=== PATIENT | female | born 1990 | race Caucasian/White ===

== ENCOUNTER 2021-06-07 00:34 | Inpatient (IN) | payer OTHER ==
[~2021-06-07] VITALS: Ht 157.5 cm; Wt 80.1 kg
[2021-06-07 00:35] VITALS: BP 113/74
[2021-06-07 01:26] LABS: ABSOLUTE NEUTROPHILS 2.3 thou/uL (1.4-8.2); BASOPHILS 0.3 % (0.0-2.0); EOSINOPHILS 0.1 % (0.0-3.0); HEMATOCRIT 37.4 % (37.0-47.0); HEMOGLOBIN 12.4 gm/dL (12.0-15.0); LYMPHOCYTES 23.5 % (24.0-44.0); MCH 29.2 pg (26.0-34.0); MCHC 33.1 g/dL (28.0-37.0); MCV 88.1 fL (80.0-100.0); PLATELET COUNT 94 thou/uL (150-400); POLYS 70.1 % (36.0-66.0); RBC 4.25 mil/uL (4.20-5.00); RDW 13.4 % (10.5-14.5); WBC 3.2 thou/uL (4.0-11.0)
[2021-06-07 01:29] LABS: CALCIUM 7.9 mg/dL (8.5-10.1); CREATININE 0.7 mg/dL (0.6-1.0); POTASSIUM 4.1 mmol/L (3.5-5.1)
[2021-06-07 01:35] LABS: TOTAL BILIRUBIN 0.2 mg/dL (0.2-1.0)
[2021-06-07 02:35] LABS: BE(vivo) -3.1 mmol/L (-2 to +3); HCO3 20.5 mmol/L (22.0-26.0); PCO2 32.4 mmHg (35.0-45.0); PO2 95.9 mmHg (80.0-100.0); sO2 97.5 % (92.0-98.0)
--- NOTE | 2021-06-07 07:18 | EKG ---
[address] [place] [employer] [place] [address] ELECTROCARDIOGRAM REPORT Name: FREDIS JOINER Room #: 170-4 ADM IN M.R.#: [id number] Admission: 06/07/21 Attend Phys: Shaka Myers MD Discharge: Date of : [birth year] Report #: [id number] [facility] ED Test Date: 2021-06-07 Test Time: 01:42:54 Pat Name: FREDIS SEGURA Department: Room: 170 Gender: F Vice President Financial: SANCHEZ : 1990 Requested By: Zaire Quiñonez Order Number: [id number] MD: Rock Felipe Measurements Intervals [place] Rate: 115 P: 47 VA: 135 QRS: -8 QRSD: 97 T: 14 QT: 309 QTc: 428 Interpretive Statements Sinus tachycardia RSR' in V1 or V2, right VCD or RVH No previous ECG available for comparison Electronically Signed On 06-07-2021 7:17:58 MOBILITY ARCHITECT MANAGER by Rock Felipe [email or web address] <ELECTRONICALLY SIGNED> By: Rock Felipe MD, [facility] 06/07/21 0717 [id number] [id number] Rock Felipe MD, FACFlorinda /EPI
[2021-06-07 14:03] VITALS: BP 102/59
[2021-06-07 15:06] VITALS: BP 102/59
[2021-06-07 15:38] VITALS: BP 101/65
--- NOTE | 2021-06-07 15:47 | NUR ---
31 year old female presents to the ED on 06-07-21 with complaints of SOA, cough, fever and "chills" all of which began on 06-01-21. Also notes loss of taste and smell and notes she is unvaccinated and ID Now shows a positive result. Presently the patient is on 2L via NC. Per the assessments the patient is listed as A&O x4. Will have [facility] review with patient who is listed as patient pay. As Medical assessment continues CM will await therapy orders to be placed to assist for discharge planning which may include need for a safety net clinic.
[2021-06-07 18:57] LABS: URINE BILIRUBIN NEGATIVE (Negative); URINE BLOOD NEGATIVE (Negative); URINE CLARITY CLEAR; URINE COLOR YELLOW; URINE GLUCOSE-RANDOM* NEGATIVE (Negative); URINE KETONES NEGATIVE (Negative); URINE LEUKOCYTES-REFLEX NEGATIVE (Negative); URINE NITRITE-REFLEX NEGATIVE (Negative); URINE PROTEIN (DIPSTICK) NEGATIVE (Negative); URINE UROBILINOGEN 0.2 E.U./dl (0.2-1.0)
[2021-06-07 21:06] VITALS: BP 98/56
[2021-06-07 23:47] VITALS: BP 94/59
[2021-06-08 04:01] LABS: ABSOLUTE NEUTROPHILS 2.7 thou/uL (1.4-8.2); BASOPHILS 0.2 % (0.0-2.0); HEMATOCRIT 34.2 % (37.0-47.0); HEMOGLOBIN 11.4 gm/dL (12.0-15.0); LYMPHOCYTES 30.3 % (24.0-44.0); MCH 29.5 pg (26.0-34.0); MCHC 33.3 g/dL (28.0-37.0); MCV 88.7 fL (80.0-100.0); MONOCYTES 5.7 % (1.0-8.0); PLATELET COUNT 115 thou/uL (150-400); POLYS 63.8 % (36.0-66.0); RBC 3.85 mil/uL (4.20-5.00); RDW 13.4 % (10.5-14.5); WBC 4.3 thou/uL (4.0-11.0)
[2021-06-08 04:18] LABS: ALBUMIN 2.7 g/dL (3.4-5.0); ANION GAP 11 mmol/L (7-16); BUN 10 mg/dL (7-18); CALCIUM 7.4 mg/dL (8.5-10.1); CHLORIDE 103 mmol/L (98-107); CO2 24 mmol/L (21-32); CREATININE 0.5 mg/dL (0.6-1.0); DIRECT BILIRUBIN < 0.1 mg/dL (<0.1-0.2); GLUCOSE 137 mg/dL (74-106); POTASSIUM 3.8 mmol/L (3.5-5.1); SGOT 41 U/L (15-37); SGPT 56 U/L (30-65); SODIUM 138 mmol/L (136-145); TOTAL BILIRUBIN 0.2 mg/dL (0.2-1.0); TOTAL PROTEIN 5.8 g/dL (6.4-8.2)
[2021-06-08 05:16] VITALS: BP 108/60
--- NOTE | 2021-06-08 06:05 | NUR ---
Pt. on O2 at 3L/NC till this am. O2 sat has been in the upper 90's to 100% on 3L. Titrated O2 down to 2L/NC. Shortness of breath with exertion. Cont. on enhanced precaution , afebrile.
[2021-06-08 08:59] VITALS: BP 93/53
[2021-06-08 11:38] VITALS: BP 99/59
--- NOTE | 2021-06-08 16:09 | NUR ---
CARE ASSUMED THIS AM, PT ALERT AND ORIENTED X4, DENIES ANY CHEST PAIN, NAUSEA AND VOMITTING. COMPLAINS OF PAIN WITH COUGH. TYLENOL AND COUGH MEDICINE GIVEN. CURRENTLY ON 1L OF OXYGEN, SOB WITH EXERTION. PT IS PALESTINIAN SPEAKING, TRASNLATE SYSTEM USED THIS AM. UP AD JAY TO BATHROOM. DENIES ANY OTHER NEEDS. WILL CONTINUE TO MONITOR.
[2021-06-08 16:50] VITALS: BP 91/58
[2021-06-08 19:06] VITALS: BP 98/56
[2021-06-09 05:27] LABS: ABSOLUTE NEUTROPHILS 1.5 thou/uL (1.4-8.2); BASOPHILS 0.4 % (0.0-2.0); HEMATOCRIT 35.1 % (37.0-47.0); HEMOGLOBIN 11.5 gm/dL (12.0-15.0); MCH 29.7 pg (26.0-34.0); MCHC 32.6 g/dL (28.0-37.0); MONOCYTES 10.1 % (1.0-8.0); PLATELET COUNT 149 thou/uL (150-400); POLYS 45.5 % (36.0-66.0); RBC 3.86 mil/uL (4.20-5.00); RDW 13.5 % (10.5-14.5); WBC 3.3 thou/uL (4.0-11.0)
[2021-06-09 05:55] LABS: ALBUMIN 2.7 g/dL (3.4-5.0); ANION GAP 9 mmol/L (7-16); BUN 11 mg/dL (7-18); CALCIUM 7.7 mg/dL (8.5-10.1); CHLORIDE 104 mmol/L (98-107); CO2 26 mmol/L (21-32); CREATININE 0.6 mg/dL (0.6-1.0); DIRECT BILIRUBIN < 0.1 mg/dL (<0.1-0.2); GLUCOSE 109 mg/dL (74-106); PHOSPHORUS 3.4 mg/dL (2.5-4.9); SGOT 38 U/L (15-37); SGPT 49 U/L (30-65); SODIUM 139 mmol/L (136-145); TOTAL BILIRUBIN 0.2 mg/dL (0.2-1.0); TOTAL PROTEIN 6.4 g/dL (6.4-8.2)
--- NOTE | 2021-06-09 06:25 | NUR ---
Slept fair during the night. Woke up this am with episode of coughing spells. Cough medicine given this am and tylenol given last night. C/O nausea due to coughig spells. Zofran given with some relief. O2 at 1L/NC with O2 sat in the mid to upper 90's. Cont. on enhanced precaution , afebrile. Making some progress towards care plan goals.
[2021-06-09 07:41] VITALS: BP 92/52
[2021-06-09 08:08] LABS: HIV ANTIBODY Non Reactive (Non Reactive)
[2021-06-09 10:58] VITALS: BP 106/63
--- NOTE | 2021-06-09 12:21 | NUR ---
CM assessment completed with the pt via phone due to enhanced ISO covid+. The pt reports she lives with her spouse and 3 children. The youngest is 9mos old and is on medicaid. The pt is currently not working as she is staying at home with her children. She is unvaccinated and does not have health insurance in place. She is normally indep with gait and adl's. She is being seen by [facility] for [place] screening. She has had two doses of remdesivir and will get 2-3 more before dcing home. She is up ad carla to the bathroom and down to 1 liters of o2 currently. Torsten Chavez is her "spouse" but they are not legally . Support provided. Cm role introduced. Cm to voucher any dc scripts. Pt is aware of saftey net clinics for f/u care. Will follow.
[2021-06-09 15:29] VITALS: BP 98/58
--- NOTE | 2021-06-09 15:48 | NUR ---
CARE ASSUMED THIS AM, PT ALERT AND ORIENTED X4, NEPALESE SPEAKING. CURRENTLY ON 1L OF OXYGEN. CONTINUE TO HAVE COUGH, STATED STATED PAIN IS BETTER WITH COUGH. UP TO BATHROOM INDEPENDENTLY. ENHANCED PRECAUTION IN PLACE. DENIES ANY OTHER PAIN. CALL LIGHT AND TABLE WITHIN REACH. PT IS SLOWLY PROGRESSING TOWARDS CARE.
[2021-06-09 19:28] VITALS: BP 114/74
--- NOTE | 2021-06-09 22:28 | NUR ---
PROGRESS PT A/O X4. UP AD JAY GAIT STEADY. CALL LIGHT AND PERSONAL ITEMS IN REACH. VSS, LUNGS DIMINISHED ON 1 LITER O2 VIA NC. PT REPORTED COUGH HAS DECREASED, DENIES PAIN OR NEED FOR COUGH MEDICATION. VOIDING QS. NO NAUSEA TODAY. CONTINUE POC.
--- NOTE | 2021-06-10 03:42 | NUR ---
PT'S TELEMETRY READING SA/SB WITH RATES IN THE 40'S. REX NORMAN NOTIFIED.
[2021-06-10 04:46] VITALS: BP 115/55
[2021-06-10 05:59] LABS: ABSOLUTE NEUTROPHILS 2.2 thou/uL (1.4-8.2); BASOPHILS 0.1 % (0.0-2.0); HEMATOCRIT 35.2 % (37.0-47.0); HEMOGLOBIN 11.5 gm/dL (12.0-15.0); LYMPHOCYTES 36.1 % (24.0-44.0); MCH 29.4 pg (26.0-34.0); MCHC 32.8 g/dL (28.0-37.0); MCV 89.6 fL (80.0-100.0); MONOCYTES 11.9 % (1.0-8.0); PLATELET COUNT 155 thou/uL (150-400); POLYS 51.9 % (36.0-66.0); RBC 3.93 mil/uL (4.20-5.00); RDW 13.5 % (10.5-14.5); WBC 4.3 thou/uL (4.0-11.0)
[2021-06-10 06:24] LABS: ALBUMIN 2.8 g/dL (3.4-5.0); ANION GAP 7 mmol/L (7-16); BUN 14 mg/dL (7-18); CALCIUM 8.2 mg/dL (8.5-10.1); CHLORIDE 105 mmol/L (98-107); CO2 27 mmol/L (21-32); CREATININE 0.7 mg/dL (0.6-1.0); DIRECT BILIRUBIN < 0.1 mg/dL (<0.1-0.2); GLUCOSE 98 mg/dL (74-106); PHOSPHORUS 3.6 mg/dL (2.5-4.9); POTASSIUM 4.5 mmol/L (3.5-5.1); SGOT 32 U/L (15-37); SGPT 56 U/L (30-65); SODIUM 139 mmol/L (136-145); TOTAL BILIRUBIN 0.2 mg/dL (0.2-1.0); TOTAL PROTEIN 6.6 g/dL (6.4-8.2)
[2021-06-10 08:15] VITALS: BP 98/65
[2021-06-10 12:47] VITALS: BP 102/64
--- NOTE | 2021-06-10 14:05 | NUR ---
PT IS PROGRESSING TOWARDS CARE. CURRENTLY ON ROOM AIR. COUGH IS BETTER. UP AD JAY TO THE BATHROOOM. DENIES A [place] NEEDS, WILL CONTINUE TO MONITOR.
--- NOTE | 2021-06-10 15:27 | NUR ---
SW reviewed chart and spoke with nursing and attending physician. Pt remains in Enhanced Isolation due to COVID. Pt is afebrile and on 1L of O2. Pt is on IV steroids and will complete course of Remdesivir tomorrow. Plan is for pt to discharge home when medically stable. Meds to be vouched in outpatient pharmacy upon discharge. [facility] is following to assist with Medicaid application. SW is following to assist as needed with discharge planning.
[2021-06-10 16:36] VITALS: BP 100/60
[2021-06-10 19:40] VITALS: BP 109/67
[2021-06-11 04:30] VITALS: BP 103/62
--- NOTE | 2021-06-11 05:21 | NUR ---
PROGRESS PT A/O X4. UP AD JAY. LUNGS CLEAR, ON ROOM AIR DENIES SOB, AND PAIN. VSS LAST DOSE OF REMDESIVIR DUE TODAY AND PT EXPECTS TO DISCHARGE HOME. PT IS IRISH SPEAKING BUT ABLE TO EXPRESS MOST OF HER BASIC NEEDS. CONTINUE POC.
[2021-06-11 07:04] LABS: ALBUMIN 2.9 g/dL (3.4-5.0); ANION GAP 10 mmol/L (7-16); BUN 17 mg/dL (7-18); CALCIUM 8.4 mg/dL (8.5-10.1); CHLORIDE 105 mmol/L (98-107); CO2 25 mmol/L (21-32); CREATININE 0.6 mg/dL (0.6-1.0); DIRECT BILIRUBIN < 0.1 mg/dL (<0.1-0.2); GLUCOSE 94 mg/dL (74-106); PHOSPHORUS 3.9 mg/dL (2.5-4.9); POTASSIUM 3.9 mmol/L (3.5-5.1); SGOT 39 U/L (15-37); SGPT 92 U/L (30-65); SODIUM 140 mmol/L (136-145); TOTAL BILIRUBIN 0.3 mg/dL (0.2-1.0); TOTAL PROTEIN 6.7 g/dL (6.4-8.2)
[2021-06-11 07:23] VITALS: BP 90/55
[2021-06-11 11:31] VITALS: BP 1407/63
--- NOTE | 2021-06-11 13:52 | NUR ---
DISCHARGE NOTE: SHAMEKA reviewed chart and spoke with nursing and attending physician. Pt remains in Enhanced Isolation due to COVID. Rest/exercise oximetry ordered to evaluate for home O2 needs. Pt is medically stable for discharge home today. SHAMEKA faxed face sheet to [facility]. Case mgmt. to vouch for new prescriptions, as pt does not currently have health insurance. Pt will not qualify for [place] Medicaid. SHAMEKA notified attending physician that scripts are needed soon, in order for the outpatient pharmacy to fill meds before 1800 today. SHAMEKA is following to assist as needed with discharge planning.
[2021-06-11 14:56] LABS: T-SPOT.TB Negative
[2021-06-11] MEDS ORDERED: PEPCID20 MG PO (15:17)
[2021-06-11 15:35] VITALS: BP 92/59
[2021-06-11] MEDS ORDERED: PREDNISONE 10 M10 MG PO (16:04)
[2021-06-11] MEDS ORDERED: VENTOLIN HFA INH8 GM INH (16:06)
[2021-06-11] MEDS ORDERED: MUCINEX600 MG PO (16:06)
[2021-06-11] MEDS ORDERED: VITAMIN D325 MC2 PO (16:07)
[2021-06-11] MEDS ORDERED: VITAMIN C1000 MG PO (16:07)
[2021-06-11] MEDS ORDERED: NYSTATIN100000 UNI SW&SWALLOW (16:08)
[2021-06-11] MEDS ORDERED: 3-DAY VAGINAL C21 GM VAG (16:09)
[2021-06-11 16:48] VITALS: BP 92/59
--- NOTE | 2021-06-11 17:22 | NUR ---
RN ASSUMED PT'S CARE AT 0700AM, PT IS A&OX4, PT IS ROOM AIR , PT'S SOB AND COUGHING HAVE IMPROVED, PT'S VS ARE STABLE, PT DENIES PAIN AND SOB BY THIS TIME, RN RECEIVED ORDER TO DC PT TO HOME, RN HAS CALLED PT'S , PT'S UNDERSTANDS DC TEACHING WELL , PT HAS POOR FRENCH,
--- NOTE | 2021-06-11 18:18 | NUR ---
PT [facility] HER [facility]S [facility], PT'S CLOTHER IN PT TO GO HOME NOW.
--- NOTE | 2021-06-12 07:04 | EKG ---
[address] [address] ELECTROCARDIOGRAM REPORT Name: ONTIVEROSFREDIS COLIN Room #: 354-P [facility] IN M.R.#: [id number] Admission: 06/07/21 Attend Phys: Shaka Myers MD Discharge: 06/11/21 Date of : 89 Report #: [id number] [facility] Test Date: 2021-06-11 Test Time: 09:45:19 Pat Name: FREDIS SEGURA Department: Room: 354 Gender: F Accounts Clerk: FSCHWALCALEB : 1990 Requested By: Balbina Martini Order Number: [id number] MD: Rock Felipe Measurements Intervals [place] Rate: 54 P: 47 [place]: 158 QRS: 31 QRSD: 111 T: 24 QT: 416 QTc: 395 Interpretive Statements Sinus rhythm Compared to ECG 06/07/2021 01:42:54 Sinus tachycardia no longer present Right ventricular hypertrophy no longer present Electronically Signed On 06-12-2021 7:04:11 PICTURE COPYIST by Rock Felipe [email or web address] <ELECTRONICALLY SIGNED> By: Rock Felipe MD, [facility] 06/12/2104 4 4 Rock Felipe MD, [facility] /EPI
== END 2021-06-11 18:18 | disposition home or self-care (01) | DRG 871 ==
LOC: ER 00:34 → EROBS 01:43 → 3W 15:34
PROVIDERS: Emergency Medicine; Nurse Practitioner Family; Specialist; ADMIT Internal Medicine; ATTEND Internal Medicine
PROC: XW033E5 Introduction of Remdesivir Anti-infective into Peripheral Vein, Percutaneous Approach, New Technology Group 5 (ICD-10-PCS; principal; 2021-06-07)
DX: A41.89 Other specified sepsis (principal); U07.1 COVID-19; J12.82 Pneumonia due to coronavirus disease 2019; J96.01 Acute respiratory failure with hypoxia; Z79.899 Other long term (current) drug therapy; F17.210 Nicotine dependence, cigarettes, uncomplicated
CPT/HCPCS: 10879